=== PATIENT | female | born 1965 | race African-American/Black ===

== ENCOUNTER 2016-06-04 16:58 | Inpatient (IN) | payer MEDICAID ==
[~2016-06-04] VITALS: Ht 160 cm; Wt 84.8 kg
[~2016-06-04 16:58] MED LIST: CLON.5; DIAZ10 PO; HYDR-3971; OMEP10SU; PROZAC; SOMA
[2016-06-04] MEDS ORDERED: HALOPERIDOL 5 MG TABLET PO PRN (19:30)
[2016-06-04] MEDS ORDERED: ZOLPIDEM TARTRATE 10 MG TABLET PO PRN (19:30)
[2016-06-04] MEDS ORDERED: LORazepam 2 MG TABLET PO PRN (19:30)
[2016-06-04] MEDS ORDERED: PNEUMOCOCCAL VACCINE POLYVALENT 0.5 ML VIAL [PPSV23] IM ONE (19:45)
[2016-06-04 20:05] VITALS: BP 116/78
[2016-06-04] MEDS ORDERED: LACTULOSE 20 GM/30 ML SOLUTION UDCUP PO ONE (20:45)
[2016-06-05 03:47] VITALS: BP 114/80
[2016-06-05] MEDS ORDERED: HALOPERIDOL LACTATE 5 MG/ML VIAL ONE (07:56)
[2016-06-05] MEDS ORDERED: LORazepam 2 MG/ML VIAL ONE (07:56)
[2016-06-05] MEDS ORDERED: DiphenhydrAMINE HCL 50 MG/ML VIAL ONE (07:57)
[2016-06-05] MEDS ORDERED: DiphenhydrAMINE HCL 50 MG/ML VIAL IM ONE (08:15)
[2016-06-05] MEDS ORDERED: HALOPERIDOL LACTATE 5 MG/ML VIAL IM ONE (08:15)
[2016-06-05] MEDS ORDERED: LORazepam 2 MG/ML VIAL IM ONE (08:15)
[2016-06-05 08:43] VITALS: BP 128/89
[2016-06-05] MEDS ORDERED: LACTULOSE 20 GM/30 ML SOLUTION UDCUP PO SCH (09:00)
[2016-06-05] MEDS: LACTULOSE 20 GM/30 ML SOLUTION UDCUP PO SCH (09:22)
[2016-06-05] MEDS ORDERED: PETROLATUM,WHITE 71 GM JELLY TP PRN (10:45)
[2016-06-05] MEDS ORDERED: IBUPROFEN 600 MG TABLET PO PRN (10:45)
[2016-06-05] MEDS ORDERED: MAG HYDROX/AL HYDROX/SIMETH ES 30 ML SUSPENSION UDCUP PO PRN (10:45)
[2016-06-05] MEDS ORDERED: CloNIDine HCL 0.1 MG TABLET PO PRN (10:45)
[2016-06-05] MEDS ORDERED: MAGNESIUM HYDROXIDE SUSPENSION 30 ML UDCUP PO PRN (10:45)
[2016-06-05] MEDS ORDERED: LOPERAMIDE HCL 2 MG CAPSULE PO PRN (10:45)
[2016-06-05] MEDS ORDERED: BENZOCAINE/MENTHOL LOZENGE MM PRN (10:45)
[2016-06-05] MEDS ORDERED: ONDANSETRON HCL 4 MG TABLET PO PRN (10:45)
[2016-06-05] MEDS ORDERED: ALBUTEROL SULFATE HFA 90 MCG/PUFF 8 GM INHALER IH PRN (10:45)
[2016-06-05] MEDS ORDERED: BACITRACIN 28.4 GM OINTMENT TP PRN (10:45)
[2016-06-05] MEDS: ACETAMINOPHEN 325 MG TABLET PO PRN (11:52)
[2016-06-05 15:53] VITALS: BP 132/60
[2016-06-05] MEDS: DIVALPROEX SODIUM 500 MG DR TABLET PO SCH (16:10)
[2016-06-05] MEDS: RisperiDONE 2 MG TABLET PO SCH (16:10)
[2016-06-05 16:18] VITALS: BP 132/60
[2016-06-06] MEDS: LACTULOSE 20 GM/30 ML SOLUTION UDCUP PO SCH (08:36)
[2016-06-06] MEDS: DOCUSATE SODIUM 100 MG CAPSULE PO SCH (08:36)
[2016-06-06] MEDS: OMEPRAZOLE 20 MG CAPSULE PO SCH (08:36)
[2016-06-06 08:41] VITALS: BP 110/77
[2016-06-06 08:51] LABS: APPEARANCE,URINE CLEAR (CLEAR); GLUCOSE, URINE (UA) NEGATIVE (NEGATIVE); KETONES,URINE NEGATIVE (NEGATIVE); LEUKOCYTE ESTERASE ,URINE NEGATIVE (NEGATIVE); OCCULT BLOOD,URINE NEGATIVE (NEGATIVE); PROTEIN,URINE NEGATIVE (NEGATIVE)
[2016-06-06] MEDS: RisperiDONE 2 MG TABLET PO SCH ×2 (08:54→16:19)
[2016-06-06] MEDS: DIVALPROEX SODIUM 500 MG DR TABLET PO SCH ×2 (08:54→16:19)
[2016-06-06 09:03] LABS: ADD UA MICROSCOPIC NO
[2016-06-06 16:08] VITALS: BP 122/78
[2016-06-06] MEDS: ACETAMINOPHEN 325 MG TABLET PO PRN (16:19)
[2016-06-07 05:06] VITALS: BP 105/76
[2016-06-07 07:43] LABS: BASOPHILS % (AUTO) 0.3 % (0.0-2.0); EOSINOPHILS % (AUTO) 0.3 % (1.0-6.0); HEMATOCRIT 42.6 % (36-46); HEMOGLOBIN 13.8 g/dL (12.0-16.0); LYMPHOCYTES % (AUTO) 36.5 % (22.0-44.0); MEAN CORPUSCULAR HEMOGLOBIN 31.7 pg (26.0-34.0); MEAN CORPUSCULAR HGB CONC 32.3 G/dL (31.0-37.0); MEAN CORPUSCULAR VOLUME 98 fL (80-100); MONOCYTES # (AUTO) 0.5 K/uL (0.1-1.0); MONOCYTES % (AUTO) 8.3 % (2.0-9.0); NEUTROPHILS % (AUTO) 54.6 % (40.0-70.0); PLATELET COUNT (AUTO) 355 K/uL (150-450); RED BLOOD CELL COUNT(AUTO) 4.34 MIL/uL (4.00-5.20); RED CELL DISTRIBUTION WIDTH 12.7 % (11.5-14.5); WHITE BLOOD COUNT (AUTO) 5.4 K/uL (4.5-11.0)
[2016-06-07 08:05] LABS: ALANINE AMINOTRANSFERASE 27 U/L (12-78); ALBUMIN 3.5 g/dL (3.4-5.0); ANION GAP 7 mmol/L (8-16); ASPARTATE AMINOTRANSFERASE 21 U/L (15-37); BILIRUBIN,TOTAL 0.2 mg/dL (0.1-1.0); CALCIUM, TOTAL 8.6 mg/dL (8.8-10.5); CARBON DIOXIDE 28 mmol/L (22-29); CHLORIDE 103 mmol/L (98-107); CHOL/HDL RATIO 2.5 (3.9-5.7); CREATININE 0.74 mg/dL (0.60-1.30); GLOMERULAR FILTR. RATE CALC > 60 mL/min (>60); POTASSIUM 4.6 mmol/L (3.5-5.1); SODIUM SERUM 138 mmol/L (136-145); THYROID STIMULATING HORMONE 0.57 uIU/mL (0.36-3.74); TOTAL PROTEIN, SERUM 6.8 g/dL (6.4-8.2); UREA NITROGEN, BLOOD 17 mg/dL (7-18)
[2016-06-07 08:09] LABS: HEMOGLOBIN A1C 5.8 % (4.5-6.2)
[2016-06-07 08:23] VITALS: BP 126/76
[2016-06-07] MEDS: DIVALPROEX SODIUM 500 MG DR TABLET PO SCH ×2 (08:24→16:39)
[2016-06-07] MEDS: RisperiDONE 2 MG TABLET PO SCH ×2 (08:24→16:39)
[2016-06-07] MEDS: DOCUSATE SODIUM 100 MG CAPSULE PO SCH (08:24)
[2016-06-07] MEDS: OMEPRAZOLE 20 MG CAPSULE PO SCH (08:24)
[2016-06-07] MEDS: LACTULOSE 20 GM/30 ML SOLUTION UDCUP PO SCH (08:25)
[2016-06-07 16:00] VITALS: BP 135/88
[2016-06-08 08:31] VITALS: BP 106/67
[2016-06-08] MEDS: RisperiDONE 2 MG TABLET PO SCH ×2 (08:51→16:15)
[2016-06-08] MEDS: OMEPRAZOLE 20 MG CAPSULE PO SCH (08:52)
[2016-06-08] MEDS: LACTULOSE 20 GM/30 ML SOLUTION UDCUP PO SCH (08:52)
[2016-06-08] MEDS: DIVALPROEX SODIUM 500 MG DR TABLET PO SCH ×2 (08:52→16:15)
[2016-06-08] MEDS: DOCUSATE SODIUM 100 MG CAPSULE PO SCH (08:52)
[2016-06-08] MEDS: ACETAMINOPHEN 325 MG TABLET PO PRN (13:55)
[2016-06-08 16:29] VITALS: BP 125/81
[2016-06-09 07:03] VITALS: BP 123/75
[2016-06-09 08:38] VITALS: BP 129/79
[2016-06-09] MEDS: DIVALPROEX SODIUM 500 MG DR TABLET PO SCH (08:59)
[2016-06-09] MEDS: RisperiDONE 2 MG TABLET PO SCH (08:59)
[2016-06-09] MEDS: OMEPRAZOLE 20 MG CAPSULE PO SCH (08:59)
[2016-06-09] MEDS: LACTULOSE 20 GM/30 ML SOLUTION UDCUP PO SCH (08:59)
[2016-06-09] MEDS: DOCUSATE SODIUM 100 MG CAPSULE PO SCH (08:59)
[2016-06-09] MEDS ORDERED: LACT30L PO (09:18)
[2016-06-09] MEDS ORDERED: DIVA500T35 PO (09:18)
[2016-06-09] MEDS ORDERED: OMEP20 PO (09:18)
[2016-06-09] MEDS ORDERED: DSS100 PO (09:18)
[2016-06-09] MEDS ORDERED: RISP2 PO (09:18)
== END 2016-06-09 11:00 | disposition home or self-care (01) | DRG 750 ==
LOC: B3A 19:33
PROVIDERS: ADMIT Psychiatry & Neurology Psychiatry; ATTEND Psychiatry & Neurology Psychiatry
DX: F25.9 Schizoaffective disorder, unspecified (principal); J44.9 Chronic obstructive pulmonary disease, unspecified; F32.9 Major depressive disorder, single episode, unspecified; E66.9 Obesity, unspecified; F22 Delusional disorders; F41.9 Anxiety disorder, unspecified; G89.29 Other chronic pain; K21.9 Gastro-esophageal reflux disease without esophagitis; K59.00 Constipation, unspecified; F17.200 Nicotine dependence, unspecified, uncomplicated; Z90.49 Acquired absence of other specified parts of digestive tract; Z59.0 Homelessness; Z90.710 Acquired absence of both cervix and uterus; Z98.890 Other specified postprocedural states; Z28.21 Immunization not carried out because of patient refusal; Z68.33 Body mass index [BMI] 33.0-33.9, adult
CPT/HCPCS: 80307; 83036; 84439; 84443; 90471; J1200; J1630; J2060

== ENCOUNTER 2017-03-02 05:27 | Day surgery (SDC) | payer OTHER ==
[~2017-03-02] VITALS: Ht 162.6 cm; Wt 100.0 kg
[~2017-03-02 05:27] MED LIST changes: -CLON.5; -DIAZ10 PO; +DIVA500T35 PO; +DSS100 PO; -HYDR-3971; +LACT30L PO; -OMEP10SU; +OMEP20 PO; -PROZAC; +RISP2 PO; -SOMA
[2017-03-02] MEDS ORDERED: LIDOCAINE HCL 2% 5 ML JELLY TP ONE (05:28)
[2017-03-02] MEDS ORDERED: BENZOCAINE 20% 50 MCG/SPRAY 57 GM TP ONE (05:28)
[2017-03-02] MEDS ORDERED: ALBUTEROL SULFATE 2.5 MG/0.5 ML NEB SOLUTION NEB ONE (05:28)
[2017-03-02] MEDS ORDERED: LIDOCAINE HCL 4% 50 ML SOLUTION TP ONE (05:28)
[2017-03-02] MEDS ORDERED: SODIUM CHLORIDE 0.9% 1,000 ML IV ONE ×2 (05:59→06:00)
[2017-03-02] MEDS ORDERED: HYDR-305 PO (06:48)
[2017-03-02] MEDS ORDERED: MONT10TA21 PO (06:48)
[2017-03-02] MEDS ORDERED: MIDAZOLAM HCL 2 MG/2 ML VIAL ONE (07:36)
[2017-03-02] MEDS ORDERED: FentaNYL CITRATE-PF 100 MCG/2 ML VIAL ONE (07:37)
[2017-03-02] MEDS ORDERED: MethylPREDNISolone SOD SUCC 125 MG/2 ML VIAL IVP ONE (08:15)
[2017-03-02] MEDS ORDERED: MethylPREDNISolone SOD SUCC 125 MG/2 ML VIAL ONE (08:46)
[2017-03-02] MEDS ORDERED: DEXT15LI57 PO (09:03)
[2017-03-02] MEDS ORDERED: FAMO20 PO (09:03)
[2017-03-02] MEDS ORDERED: OXYGEN THERAPY IH SCH (20:00)
== END 2017-03-02 11:35 | disposition home or self-care (01) ==
LOC: SURGERY 05:27
PROVIDERS: ATTEND Internal Medicine Critical Care Medicine
DX: J38.4 Edema of larynx (principal); B37.0 Candidal stomatitis; J44.9 Chronic obstructive pulmonary disease, unspecified; Z90.49 Acquired absence of other specified parts of digestive tract; Z98.890 Other specified postprocedural states
CPT/HCPCS: 31623; 31624; 71010; 87015 ×2; 87070; 87101; 87147; 87205; 87220; 88108; 88312; 93005; J2250; J2930; J3010; J7030